=== PATIENT | female | born 1995 | race African-American/Black ===

== ENCOUNTER → 2016-11-20 | Outpatient (CLI) | payer OTHER ==
[2016-11-20 19:22] LABS: BASO % 0.5 % (0.0-1.0); EOS # 0.1 K/mm3 (0.0-0.50); EOS % 1.4 % (0.0-3.0); LARGE UNSTAINED CELL # 0.1 K/mm3 (0.0-0.4); LARGE UNSTAINED CELL % 1.8 % (0.0-4.0); LYMPH # 1.8 K/mm3 (1.5-6.5); LYMPH % 21.2 % (24.0-44.0); MEAN CORPUSCULAR HEMOGLOBIN 29.9 pg (27.0-33.0); MEAN CORPUSCULAR HGB CONC 32.5 g/dl (32.0-36.5); MEAN CORPUSCULAR VOLUME 92.1 fl (80.0-96.0); MONO % 12.7 % (0.0-5.0); NEUTROPHILS # 4.9 K/mm3 (1.8-7.7); NEUTROPHILS % 62.4 % (36.0-66.0); PLATELET COUNT, AUTOMATED 368 k/mm3 (150-450); RED CELL DISTRIBUTION WIDTH 12.7 % (11.5-14.5); WHITE BLOOD COUNT 7.8 K/mm3 (4.0-10.0)
[2016-11-21 10:45] LABS: HBsAg Prenatal NEGATIVE (NEGATIVE)
== END ==
LOC: M WUC 12:37
PROVIDERS: ATTEND Specialist
DX: Z34.81 Encounter for supervision of other normal pregnancy, first trimester (principal); Z3A.00 Weeks of gestation of pregnancy not specified

== ENCOUNTER → 2018-07-15 | Outpatient (CLI) | payer OTHER | LOC: M SMT 14:59 | PROVIDERS: ATTEND Obstetrics & Gynecology | DX: Z13.79 Encounter for other screening for genetic and chromosomal anomalies (principal) | CPT/HCPCS: 36415; 87661; G0123 ==

== ENCOUNTER → 2018-07-15 | Outpatient (REF) | payer OTHER | LOC: M LAB REF 17:41 | PROVIDERS: ATTEND Obstetrics & Gynecology | DX: Z12.4 Encounter for screening for malignant neoplasm of cervix (principal); Z11.3 Encounter for screening for infections with a predominantly sexual mode of transmission ==

== ENCOUNTER 2020-03-29 18:17 | Emergency (ER) | payer OTHER ==
[~2020-03-29] VITALS: Ht 165.1 cm; Wt 52.0 kg
--- OUTSIDE RECORDS SUMMARY | 2020-03-29 18:23 | CCD ---
[facility] Address Unknown Phone Unavailable Support Name Relationship Address Phone UE Next Of Kin Unknown Unavailable GINA POLLACK Next Of Kin [address] [id number] Re-disclosure Warning The records that you are about to access may contain information from federally-assisted alcohol or drug abuse programs. If such information is present, then the following federally mandated warning applies: This information has been disclosed to you from records protected by federal confidentiality rules (42 CFR part 2). The federal rules prohibit you from making any further disclosure of this information unless further disclosure is expressly permitted by the written consent of the person to whom it pertains or as otherwise permitted by 42 CFR part 2. A general authorization for the release of medical or other information is NOT sufficient for this purpose. The Federal rules restrict any use of the information to criminally investigate or prosecute any alcohol or drug abuse patient.The records that you are about to access may contain highly sensitive health information, the redisclosure of which is protected by Article 27-F of the [facility] Public Health law. If you continue you may have access to information: Regarding HIV / AIDS; Provided by facilities licensed or operated by the [facility] Office of Mental Health; or Provided by the [facility] Office for People With Developmental Disabilities. If such information is present, then the following [facility] mandated warning applies: This information has been disclosed to you from confidential records which are protected by state law. State law prohibits you from making any further disclosure of this information without the specific written consent of the person to whom it pertains, or as otherwise permitted by law. Any unauthorized further disclosure in violation of state law may result in a fine or fpc sentence or both. A general authorization for the release of medical or other information is NOT sufficient authorization for further disc losure. Insurance Providers Payer name Policy type / Coverage type Policy ID Covered green party ID Covered green party's relationship to carbone Policy Carbone Plan Information [facility] [id number]
[2020-03-29 19:26] LABS: BASO # 0.1 10^3/uL (0.0-0.2); BASO % 0.7 % (0.0-1.0); EOS # 0.1 10^3/uL (0.0-0.5); HEMATOCRIT 38.6 % (36.0-47.0); HEMOGLOBIN 12.4 g/dl (12.0-15.5); LYMPH # 2.2 10^3/uL (1.5-5.0); MEAN CORPUSCULAR HEMOGLOBIN 28.2 pg (27.0-33.0); MEAN CORPUSCULAR HGB CONC 32.1 g/dl (32.0-36.5); MEAN CORPUSCULAR VOLUME 87.9 fl (80.0-96.0); MONO # 1.2 10^3/uL (0.0-0.8); MONO % 16.1 % (0.0-5.0); NEUTROPHILS # 3.7 10^3/uL (1.5-8.5); NEUTROPHILS % 51.9 % (36.0-66.0); PLATELET COUNT, AUTOMATED 352 10^3/uL (150-450); RED BLOOD COUNT 4.39 10^6/uL (4.00-5.40); WHITE BLOOD COUNT 7.2 10^3/uL (4.0-10.0)
--- OUTSIDE RECORDS SUMMARY | 2020-03-29 19:54 | CCD ---
Author [facility] Address Unknown Phone Unavailable Support Name Relationship Address Phone UE Next Of Kin Unknown Unavailable IGNA POLLACK Next Of Kin [address] [phone] Re-disclosure Warning The records that you are [...] is protected by Article 27-F of the [facility] Public Health law. If you continue you may have access to information: Regarding HIV / AIDS; Provided by facilities licensed or operated by the [facility] Office of Mental Health; or Provided by the [facility] Office for People With Developmental Disabilities. If such information is present, then the following [facility] mandated warning applies: This information has [...] law may result in a fine or mcfp sentence or both. A general authorization for the release of medical or other information is NOT sufficient authorization for further disc losure. Insurance Providers Payer name Policy type / Coverage type Policy ID Covered republican ID Covered republican's relationship to carbone Policy Carbone Plan Information [facility] [id number]
[2020-03-29 21:08] VITALS: BP 137/80
== END 2020-03-29 21:17 | disposition home or self-care (01) ==
LOC: M ED 18:17
DX: Z32.01 Encounter for pregnancy test, result positive (principal); O20.8 Other hemorrhage in early pregnancy; O99.519 Diseases of the respiratory system complicating pregnancy, unspecified trimester; Z88.0 Allergy status to penicillin; Z88.1 Allergy status to other antibiotic agents

== ENCOUNTER → 2020-04-01 | Outpatient (CLI) | payer OTHER | LOC: M LAB 08:52 | PROVIDERS: ATTEND Physician Assistant | DX: O26.859 Spotting complicating pregnancy, unspecified trimester (principal); Z3A.00 Weeks of gestation of pregnancy not specified ==

== ENCOUNTER → 2020-06-29 | Outpatient (REF) | payer OTHER ==
[2020-06-29 18:08] LABS: HEMATOCRIT 37.7 % (36.0-47.0); HEMOGLOBIN 12.3 g/dl (12.0-15.5); MEAN CORPUSCULAR HEMOGLOBIN 28.5 pg (27.0-33.0); MEAN CORPUSCULAR HGB CONC 32.6 g/dl (32.0-36.5); MEAN CORPUSCULAR VOLUME 87.5 fl (80.0-96.0); PLATELET COUNT, AUTOMATED 348 10^3/uL (150-450); RED BLOOD COUNT 4.31 10^6/uL (4.00-5.40); WHITE BLOOD COUNT 9.4 10^3/uL (4.0-10.0)
[2020-06-29 19:41] LABS: CHLAMYDIA DNA AMPLIFICATION NEGATIVE (NEGATIVE); GC DNA AMPLIFICATION NEGATIVE (NEGATIVE)
[2020-07-02 15:36] LABS: HEPATITIS C VIRUS ABY INDEX 0.1 INDEX (<0.8); HIV 1&2 SCREEN CENTAUR NEGATIVE (NEGATIVE)
== END ==
LOC: M PLALAB 14:15
PROVIDERS: ATTEND Advanced Practice Midwife
DX: Z36.89 Encounter for other specified antenatal screening (principal); Z3A.00 Weeks of gestation of pregnancy not specified

== ENCOUNTER → 2020-07-03 | Outpatient (CLI) | payer OTHER ==
--- NOTE | 2020-07-03 10:20 | REP ---
INDICATION: UNKNOWN LMP/DATING COMPARISON: None. TECHNIQUE: Transabdominal 1st trimester obstetrical ultrasound with color Doppler evaluation. FINDINGS: Single live early intrauterine is appreciated. [place]-rump length of 6.5 cm corresponds to 12 weeks 6 days gestational age with estimated date of delivery 01/09/2021. heart rate equals 157 beats per minute. No gross abnormalities are identified. IMPRESSION: Single live early intrauterine at 12 weeks 6 days gestational age. Complete anatomical assessment should be performed and 19-20 weeks. <Electronically signed by Rashi Dickson > 07/03/20 [id number]
== END ==
LOC: M PLAIMG 08:53
PROVIDERS: ATTEND Advanced Practice Midwife
DX: Z36.89 Encounter for other specified antenatal screening (principal); Z3A.12 12 weeks gestation of pregnancy

== ENCOUNTER → 2020-08-22 | Outpatient (CLI) | payer OTHER ==
--- NOTE | 2020-08-22 10:45 | REP ---
INDICATION: ANATOMY COMPARISON: 07/03/2020 TECHNIQUE: Transabdominal obstetrical ultrasound with color Doppler evaluation. FINDINGS: Examination demonstrates a single live intrauterine in cephalic presentation. motion is identified by technologist. Placenta is noted fundal and grade 0 without evidence for placenta previa or abruption. Amniotic fluid volume is normal. Cervix measures 3.2 cm in length and appears closed.. Selected gestational age: 20 weeks 0 days with JONATHAN 01/09/2021. Gestational age by current measurements 19 weeks 6 days with JONATHAN 01/10/2021. FHR equals 142 beats per minute. Estimated weight 316 grams (37thpercentile). Anatomical assessment demonstrates normal structures including cranium, choroid plexus, cavum, cerebellum/posterior fossa, facial features, lungs,diaphragm, stomach, cord insertion/three-vessel cord, kidneys/bladder, spine, and extremities. IMPRESSION: Single live intrauterine in cephalic presentation demonstrating appropriate estimated weight and growth. Limited evaluation of the heart/ventricular outflow tracts. Remainder of the anatomical assessment is complete and normal. <Electronically signed by Rashi Dickson > 08/22/20 [id number]
== END ==
LOC: M WHC 08:49
PROVIDERS: ATTEND Obstetrics & Gynecology
DX: Z34.82 Encounter for supervision of other normal pregnancy, second trimester (principal)

== ENCOUNTER → 2020-10-03 | Outpatient (CLI) | payer OTHER ==
--- NOTE | 2020-10-03 11:25 | REP ---
INDICATION: PREG F/U ANATOMY. COMPARISON: 08/22/2020. TECHNIQUE: Real-time sonographic evaluation of the gravid uterus performed. FINDINGS: Estimated gestational age is26 weeks 0 days, EDC 01/09/2021. Today's measurements indicate appropriate growth. Presentation: Cephalic Placenta posterior, grade 0, without evidence of placenta previa. heart rate is recorded at 144 beats per minute. Amniotic fluid is subjectively normal. ALEN 12.9, normal range 9.7-22.3. Closed cervical length is measured at 4.0 cm. Biometry chart: BPD: 62 mm, 25 weeks 2 days, 36th percentile. HC: 231 mm, 25 weeks 1 days, 30th percentile AC: 207 mm, 25 weeks 2 days, 36th percentile Femur length: 46 mm, 25 weeks 3 days, 38th percentile HC to AC ratio: 1.11, normal range 1.01-1.20. Estimated weight: 797g, 16th percentile. The four-chamber heart and ventricular outflow tracts are visualized and are grossly unremarkable, an echogenic focus in the left ventricle is likely related to chordae tendineae. IMPRESSION: Viable single intrauterine gestation as above. <Electronically signed by Javid Rosado > 10/03/20 [id number]
== END ==
LOC: M RAD 10:24
PROVIDERS: ATTEND Advanced Practice Midwife
DX: Z34.92 Encounter for supervision of normal pregnancy, unspecified, second trimester (principal); Z3A.26 26 weeks gestation of pregnancy

== ENCOUNTER → 2020-10-05 | Outpatient (CLI) | payer OTHER ==
[2020-10-05 13:30] LABS: HEMATOCRIT 33.4 % (36.0-47.0); HEMOGLOBIN 10.7 g/dl (12.0-15.5); MEAN CORPUSCULAR HEMOGLOBIN 28.5 pg (27.0-33.0); MEAN CORPUSCULAR VOLUME 88.8 fl (80.0-96.0); PLATELET COUNT, AUTOMATED 292 10^3/uL (150-450); RED BLOOD COUNT 3.76 10^6/uL (4.00-5.40); WHITE BLOOD COUNT 9.6 10^3/uL (4.0-10.0)
== END ==
LOC: M PLALAB 09:26
PROVIDERS: ATTEND Advanced Practice Midwife
DX: Z34.92 Encounter for supervision of normal pregnancy, unspecified, second trimester (principal)

== ENCOUNTER → 2020-10-15 | Outpatient (CLI) | payer OTHER ==
[~2020-10-15] MED LIST: IBUP-1114 PO; MAPA500T2 PO; MULTTAB20 PO; PRENTAB9 PO
== END ==
LOC: M LAB 08:18
PROVIDERS: ATTEND Advanced Practice Midwife
DX: O99.810 Abnormal glucose complicating pregnancy (principal); Z3A.00 Weeks of gestation of pregnancy not specified

== ENCOUNTER → 2020-12-12 | Outpatient (REF) | payer OTHER | LOC: M SFHCWAGY 17:36 | PROVIDERS: ATTEND Obstetrics & Gynecology | DX: Z34.83 Encounter for supervision of other normal pregnancy, third trimester (principal) ==

== ENCOUNTER → 2020-12-31 | Outpatient (CLI) | payer OTHER ==
--- NOTE | 2020-12-31 20:28 | REP ---
INDICATION: GROWTH UTERINE SIZE DATE DISCREPANCY COMPARISON: 10/03/2020 TECHNIQUE: Transabdominal obstetrical ultrasound with color Doppler evaluation. FINDINGS: Examination demonstrates a single live intrauterine in cephalic presentation. motion is identified by technologist. Placenta is noted posterior and grade 2 without evidence for placenta previa or abruption. Amniotic fluid volume is normal. Cervix appears closed.. Selected gestational age: 30 weeks 5 days with JONATHAN 01/09/2021. Gestational age by current measurements 36 weeks 3 days with JONATHAN 01/25/2021. FHR equals 138 beats per minute. BPD: 8.8 cm at 35 weeks 2 days HC: 32.2 cm at 36 weeks 2 days AC: 32.5 cm at 36 weeks 3 days FL: 7.3 cm at 37 weeks 3 days HL: 6.3 cm at 36 weeks 4 days HC/AC: 0 point Estimated weight 2963 grams (17thpercentile). ALEN: 14.0 cm Umbilical artery SD ratio: 1.87 (1.52-3.31) IMPRESSION: Single live intrauterine in cephalic presentation demonstrating appropriate interval growth. Amniotic fluid volume is normal. <Electronically signed by Rashi Dickson > 12/31/202023
== END ==
LOC: M WHC 12:24
PROVIDERS: ATTEND Advanced Practice Midwife
DX: Z36.9 Encounter for antenatal screening, unspecified (principal); Z3A.36 36 weeks gestation of pregnancy

== ENCOUNTER → 2021-01-02 | Outpatient (CLI) | payer OTHER ==
[~2021-01-02] MED LIST changes: -IBUP-1114 PO; -MAPA500T2 PO; -PRENTAB9 PO
[2021-01-02 13:36] LABS: HEMATOCRIT 32.3 % (36.0-47.0); HEMOGLOBIN 9.8 g/dl (12.0-15.5); MEAN CORPUSCULAR HEMOGLOBIN 23.4 pg (27.0-33.0); MEAN CORPUSCULAR HGB CONC 30.3 g/dl (32.0-36.5); MEAN CORPUSCULAR VOLUME 77.3 fl (80.0-96.0); PLATELET COUNT, AUTOMATED 322 10^3/uL (150-450); RED BLOOD COUNT 4.18 10^6/uL (4.00-5.40); WHITE BLOOD COUNT 11.5 10^3/uL (4.0-10.0)
[2021-01-02 14:06] LABS: TOTAL PROTEIN,RANDOM URINE 42.6 MG/DL (0.0-12.0)
[2021-01-02 14:12] LABS: ALBUMIN 2.7 GM/DL (3.2-5.2); ALT/SGPT 11 U/L (12-78); BILIRUBIN,TOTAL 0.3 MG/DL (0.2-1.0); BLOOD UREA NITROGEN 8 MG/DL (7-18); CALCIUM LEVEL 8.5 MG/DL (8.5-10.1); CARBON DIOXIDE LEVEL 22 MEQ/L (21-32); CHLORIDE LEVEL 108 MEQ/L (98-107); CREATININE FOR GFR 0.75 MG/DL (0.55-1.30); GLOMERULAR FILTRATION RATE > 60.0 (>60); GLUCOSE, FASTING 108 MG/DL (70-100); POTASSIUM SERUM 3.7 MEQ/L (3.5-5.1); SODIUM LEVEL 139 MEQ/L (136-145); TOTAL PROTEIN 6.4 GM/DL (6.4-8.2)
== END ==
LOC: M PLALAB 11:03
PROVIDERS: ATTEND Obstetrics & Gynecology
DX: O16.3 Unspecified maternal hypertension, third trimester (principal)
CPT/HCPCS: 36415; 80053; 82570; 84156; 85027; G0463

== ENCOUNTER 2021-01-07 00:04 | Inpatient (IN) | payer OTHER ==
[2021-01-07] VITALS (11 sets, daily range): BP systolic 123–140; BP diastolic 69–85
[~2021-01-07] VITALS: Ht 165.1 cm; Wt 51.2 kg
[2021-01-07] MEDS ORDERED: OXYTOCIN 30 UNITS IN 0.9% NaCl 500ML IV BAG (J2590) As Ordered ONE ×2 (00:39→01:30)
[2021-01-07 01:02] LABS: HEMATOCRIT 32.7 % (36.0-47.0); HEMOGLOBIN 10.2 g/dl (12.0-15.5); MEAN CORPUSCULAR HEMOGLOBIN 23.4 pg (27.0-33.0); MEAN CORPUSCULAR HGB CONC 31.2 g/dl (32.0-36.5); MEAN CORPUSCULAR VOLUME 75.2 fl (80.0-96.0); PLATELET COUNT, AUTOMATED 341 10^3/uL (150-450); RED BLOOD COUNT 4.35 10^6/uL (4.00-5.40); WHITE BLOOD COUNT 14.7 10^3/uL (4.0-10.0)
[2021-01-07] MEDS ORDERED: ACETAMINOPHEN 500 MG TAB PO PRN (01:10)
[2021-01-07] MEDS ORDERED: METHYLERGONOVINE MALEATE 0.2 MG/ML VIAL (J2210) IM PRN (01:10)
[2021-01-07] MEDS ORDERED: DOCUSATE SODIUM 100MG CAPSULE PO PRN (01:10)
[2021-01-07] MEDS ORDERED: CARBOPROST TROMETHAMINE 250 MCG/ML AMP IM PRN (01:10)
[2021-01-07] MEDS ORDERED: MEASLES,MUMPS,RUBELLA VACCINE INJ (MMR-II) (90707) SC SCH (01:10)
[2021-01-07] MEDS ORDERED: RHOGAM 300 MCG (1500 IU) INJ (J2790) IM SCH (01:10)
[2021-01-07] MEDS ORDERED: METHYLERGONOVINE MALEATE 0.2 MG TAB PO PRN (01:10)
[2021-01-07] MEDS ORDERED: DIBUCAINE 1% OINTMENT 30GM TOP PRN (01:10)
[2021-01-07] MEDS ORDERED: TRANEXAMIC ACID INJection 1,000 MG in NS 100 ML IV PRN (01:10)
--- NOTE | 2021-01-07 01:20 | HPEPDOC ---
Obstetrical History & Physical General Date of Admission Jan 07, 2021 at 00:37 History of Present Illness Patient is a 25-year-old -0-0-1 at 39 weeks and 5 days estimated gestational age who presents to labor and delivery with painful regular contractions. She was found to be 9 cm on presentation and was admitted to labor and delivery for expected management Chief Complaint: Contractions, term Information Provided By: Patient Age: 25 : 2 Term: 1 Pre-term: 0 Abortions: 0 Livin Care Care: Good Care Dating Final EDC: Jan 09, 2021 Past Medical History Past Obstetrical History : Past Obstetrical History: Multigravida Type of Delivery: Spontaneous Vaginal Del. 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 Past Medical History Surgical History: Denies/None Family History Significant Family History: No pertinent family hx Social History Marital Status: Family situation: Spouse/partner home Psychosocial History: No pertinent psych hx * Smoker: non-smoker Alcohol: Denies Drugs: denies Abuse Violence Screening Have you been hit/kicked/slapp: No Have you been sexually assault: No Imunizations Tdap status: current Allergies Coded Allergies: Penicillins (Verified Allergy, Intermediate, Hives/throat closure, ) cephalexin (Verified Allergy, Intermediate, Hives, 03/29/20) Medications No Active Prescriptions or Reported Meds Physical Examination Physical Examination GENERAL: Alert and oriented times three. BREAST: . ABDOMEN: Gravid and non-tender to touch. FETUS: Is vertex (VTX) by sterile vaginal examination (SVE) HEART RATE: Regular rate and rhythm. LUNGS: Clear to auscultation (CTA). EXTREMITIES: No edema. No clonus. Laboratory Data 24H LABS Laboratory Tests 2 01/07/21 00:40: Serology Scanned Report Hepatitis B Testing 01/07/21 00:57: Nucleated Red Blood Cells % (auto) 0.0 CBC/BMP Laboratory Tests 01/07/21 00:57 Pertinent Laboratoy Data Blood Type: O+ RBC Antibody Screen: Negative HIV: Negative Hepatitis B: Negative Hepatitis C: Negative Rapid Plasma Reagin: Nonreactive Rubella: Immune Chlamydia/Gonorrhea: Negative Group B Streptococcus: Negative Glucose Tolerance Test: 143 Vaginal Examination Dilation: 9 cm Effacement: 100% Station: +2 Presentation: Cephalic presentation Tocometer Contractions: Yes Assessment/Plan Assessment 25-year-old (G)2 para (P)2001 at 39+5 weeks. Presents to Labor and Delivery (L&D) with painful regular contractions, found to be 9 cm dilated Plan Admit and orient. V Groove Cutter and consent. Diet: Regular. Group B Streptococcus (GBS) negative. Labs and intravenous (IV) per unit protocol. Anticipate . C-S as appropriate. MONROE BELL MD Jan 07, 2021 01:20
--- NOTE | 2021-01-07 01:23 | DNPDOC ---
[facility] Delivery Note Delivery Note DATE OF DELIVERY: 01/07/2021 PREDELIVERY DIAGNOSIS: 39-5/7 weeks' gestation and labor. POST DELIVERY DIAGNOSIS: Delivered. PROCEDURE: Spontaneous vaginal delivery. [employer] DESIGN LAYOUT: Dr. Monroe Bell ANESTHESIA: None. ESTIMATED BLOOD LOSS: 100 mL. FINDINGS: 6 pound 3 ounce female infant, Score 9/9. DELIVERY SUMMARY: Patient is a 25-year-old 2 now para 2001 who was admitted to labor and delivery for active labor. She was found to be 9 cm dilated on admission with head at the +2 station. She was moved to a labor room and delivered precipitously. She ruptured spontaneously for clear fluid and delivered a vigorous female over an intact perineum. After 30 second delay the cord was clamped and cut. The placenta was then delivered intact. She had no vaginal tears. Sponge and sharp count correct x2 MONROE BELL MD Jan 07, 2021 01:23
[2021-01-07] MEDS ORDERED: HOME MED LIST COMPLETE! XX SCH (02:05)
[2021-01-07] MEDS ORDERED: MULTTAB20 PO (02:05)
[2021-01-07] MEDS ORDERED: OXYTOCIN DRIP 30 UNITS in IV 1 EA IV SCH ×4 (02:40)
[2021-01-07] MEDS: PRENATAL VITAMINS CHEWABLE TABLET PO SCH (08:55)
[2021-01-07] MEDS: IBUPROFEN 800 MG TAB PO PRN ×2 (12:38→20:57)
[2021-01-08 05:55] VITALS: BP 125/74
[2021-01-08] MEDS: PRENATAL VITAMINS CHEWABLE TABLET PO SCH (08:02)
[2021-01-08] MEDS: IBUPROFEN 800 MG TAB PO PRN (08:03)
[2021-01-08] MEDS ORDERED: INFLUENZA QUADRIVALENT PF VACCINE 0.5ML SYRINGE IM ONE (09:00)
--- NOTE | 2021-01-08 12:51 | IPNPDOC ---
Progress Note Date of Service: Jan 08, 2021 Day#: 1 Progress Note SUBJECT: Status post . She has been ambulating, voiding spontaneously with out issue and tolerating regular diet. Lochia decreasing/minimal. Pain is well- controlled. Denies headache, visual changes, right upper quadrant pain, shortness breath or chest pain. OBJECTIVE: VITAL SIGNS: Within normal limits, afebrile. Alert and oriented times three. Abdomen: Fundus firm at U-2. Soft, NTTP. ASSESSMENT: Status post uncomplicated spontaneous vaginal delivery. Vitals within normal limits, afebrile, hemodynamically stable with no evidence of infection. PLAN: Discharge to home today. Tylenol and Motrin for pain. Routine instructions/precautions reviewed. Routine PP visit in 6 weeks in clinic. VS, I&O, 24H, Fishbone Vital Signs/I&O Vital Signs Date Time Temp Pulse Resp B/P (MAP) Pulse Ox O2 Delivery O2 Flow Rate FiO2 01/08/21 05:55 98.0 65 16 125/74 (91) 98 Room Air GRECIA HERCULES DO Jan 08, 2021 12:51
== END 2021-01-08 12:45 | disposition home or self-care (01) | DRG 807 ==
LOC: M LDO 00:04 → M LDI 00:37 → M OBS 03:05
PROVIDERS: ADMIT Obstetrics & Gynecology; ATTEND Obstetrics & Gynecology
PROC: 10E0XZZ Delivery of Products of Conception, External Approach (ICD-10-PCS; principal; 2021-01-07)
DX: O62.3 Precipitate labor (principal); Z37.0 Single live birth; Z3A.39 39 weeks gestation of pregnancy

== ENCOUNTER 2021-01-11 03:05 | Emergency (ER) | payer OTHER ==
[~2021-01-11] VITALS: Ht 165.1 cm; Wt 62.4 kg
--- OUTSIDE RECORDS SUMMARY | 2021-01-11 08:54 | CCD ---
Author Author [facility] Organization [facility] Address Unknown Phone Unavailable Support Name Relationship Address Phone PEYTON CAPELLAN Next Of Kin [address] [place] [address] LENKA POLLACK Next Of Kin [address] [place] [address] UE Next Of Kin Unknown Unavailable GINA POLLACK Next Of Kin [address] [facility] [address] [address] LENKA POLLACK ECON [address] [place] [address] Unavailable Re-disclosure Warning The records that you are [...] is protected by Article 27-F of the [facility] Public Health law. If you continue you may have access to information: Regarding HIV / AIDS; Provided by facilities licensed or operated by the [facility] Office of Mental Health; or Provided by the [facility] Office for People With Developmental Disabilities. If such information is present, then the following [facility] mandated warning applies: This information has [...] law may result in a fine or half-way sentence or both. A general authorization for the release of medical or other information is NOT sufficient authorization for further disc losure. Family History Family Member Name Family Member Gender Family Member Status Date o f Status Description Data Source(s) Unknown Male Condition [facility] Unknown Male Condition [facility] Unknown Male Condition [facility] Unknown Male Condition [facility] Encounters Encounter Providers Location Date Indications Data Source(s ) ( ESTOB) [facility] [address] [place] [address] 01/02/2021 12:00:00 AM EDT eCW1 ([facility]) ( ESTOB) [facility] [address] [place] [address] 12/26/2020 12:00:00 AM EDT eCW1 ([facility]) ( ESTOB) [facility] [address] [place] [address] 12/19/2020 12:00:00 AM EDT eCW1 ([facility]) ( ESTOB) [facility] [address] [place] [address] 12/12/2020 12:00:00 AM EDT eCW1 ([facility]) ( ESTOB) [facility] Est [facility] [address] [place] [address] 10/29/2020 12:00:00 AM EDT eCW1 ([facility]) Unknown [address] [place] [address] 10/05/2020 12:00:00 AM EDT eCW1 ([facility]) ( ESTOB) [facility] Est [facility] [address] [place] [address] 10/01/2020 12:00:00 AM EDT eCW1 ([facility]) ( ESTOB) [facility] Est OB [address] [place] [address] 07/27/2020 12:00:00 AM EDT eCW1 ([facility]) ([facility] ESTOB) [facility] [address] [place] [address] 06/29/2020 12:00:00 AM EDT eCW1 ([facility]) Immunizations Vaccine Date Status Description Data Source(s) Tdap 12/12/2020 01:56:00 PM EDT completed e CW1 (Pending Sale To [facility]) Tdap 12/12/2020 01:56:00 PM EDT completed e CW1 (Pending Sale To [facility]) Tdap 12/12/2020 01:56:00 PM EDT completed e CW1 (Pending Sale To [facility]) Tdap 12/12/2020 01:56:00 PM EDT completed e CW1 (Pending Sale To [facility]) Medications No Information Insurance Providers Payer name Policy type / Coverage type Policy ID Covered constitution party ID Covered constitution party's relationship to carbone Policy Carbone Plan Information [facility] [id number] [facility] [id number] Problems, Conditions, and Diagnoses Code Display Name Description Problem Type Effective Dates Data Source(s) O16.3 80291200 Elevated blood press ure affecting in third trimester, antepartum Problem 01/02/2021 12:00:00 AM EDT eCW1 ([facility]) Z34.80 care Supervision of other normal P gustavolem 06/29/2020 12:00:00 AM EDT eCW1 (Pending Sale To [facility]) Surgeries/Procedures Procedure Description Date Indications Data Source(s) TDAP VACCINE 7/> YR IM 12/12/2020 12:00:00 AM EDT eCW1 (Pending Sale To [facility]) Results ID Date Data Source [id number] 01/07/2021 01:10:00 AM EDT [facility] Name Value Range Interpretation Code Description Data Teresa rce(s) Supporting Document(s) SARS coronavirus 2 RNA [Presence] in Res piratory specimen by ALISHA with probe detection NEGATIVE [facility] This lab was ordered by [facility] a nd reported by [facility]. ID Date Data Source TOTAL PROTEIN,RANDOM URINE 01/02/2021 12:00:00 AM EDT eCW1 ( Pending Sale To [facility]) Name Value Range Interpretation Code Description Data Teresa rce(s) Supporting Document(s) 42.6 0.0-12.0 TOTAL PROTEIN,RANDOM URIN E eCW1 (Pending Sale To [facility]) ID Date Data Source CREATININE,RANDOM URINE 01/02/2021 12:00:00 AM EDT eCW1 ([facility]) Name Value Range Interpretation Code Description Data Teresa rce(s) Supporting Document(s) 198.0 CREATININE,RANDOM URINE eCW1 ( Pending Sale To [facility]) ID Date Data Source Comprehensive Metabolic Profile (CMP) 01/02/2021 12:00:00 AM EDT eCW1 (Pending Sale To [facility]) Name Value Range Interpretation Code Description Data Teresa rce(s) Supporting Document(s) 108 70-100 GLUCOSE, FASTING eCW1 ([facility]) 8 7-18 BLOOD UREA NITROGEN eCW1 (Counts include 234 beds at the [facility]) 0.75 0.55-1.30 CREATININE FOR GFR eCW1 ([facility]) > 60.0 >60 GLOMERULAR FILTRATION RATE eCW 1 (Pending Sale To [facility]) 139 136-145 SODIUM LEVEL eCW1 ([facility]) 108 98-107 CHLORIDE LEVEL eCW1 (Pending Sale To [facility]) 3.7 3.5-5.1 POTASSIUM SERUM eCW1 ([facility]) 8.5 8.5-10.1 CALCIUM LEVEL eCW1 (Pending Sale To [facility]) 22 21-32 CARBON DIOXIDE LEVEL eCW1 ([facility]) 11 12-78 ALT/SGPT eCW1 ([facility]) 9 7-37 AST/SGOT eCW1 ([facility]) 96 45-117 ALKALINE PHOSPHATASE eCW1 ([facility]) 0.3 0.2-1.0 BILIRUBIN,TOTAL eCW1 ([facility]) 6.4 6.4-8.2 TOTAL PROTEIN eCW1 (Pending [facility] To [facility]) 2.7 3.2-5.2 ALBUMIN eCW1 ([facility]) 0.7 1.2-2.2 ALBUMIN/GLOBULIN RATIO eCW1 ([facility]) ID Date Data Source CBC - Complete Blood Count 01/02/2021 12:00:00 AM EDT eCW1 ( Pending Sale To [facility]) Name Value Range Interpretation Code Description Data Teresa rce(s) Supporting Document(s) 11.5 4.0-10.0 WHITE BLOOD COUNT eCW1 ([facility]) 9.8 12.0-15.5 HEMOGLOBIN eCW1 ([facility]) 4.18 4.00-5.40 RED BLOOD COUNT eCW1 ([facility]) 77.3 80.0-96.0 MEAN CORPUSCULAR VOLUME e CW1 ([facility]ending [facility] To [facility]) 32.3 36.0-47.0 HEMATOCRIT eCW1 ([facility]) 30.3 32.0-36.5 MEAN CORPUSCULAR HGB CONC eCW1 (Pending Sale To [facility]) 23.4 27.0-33.0 MEAN CORPUSCULAR HEMOGLOB IN eCW1 (Pending Sale To [facility]) 16.0 11.5-14.5 RED CELL DISTRIBUTION WID TH eCW1 (Pending Sale To [facility]) 322 150-450 PLATELET COUNT, AUTOMATED eCW1 (Pending Sale To [facility]) ID Date Data Source GROUP B STREP CULTURE 12/12/2020 12:00:00 AM EDT eCW1 ([facility]) Name Value Range Interpretation Code Description Data Teresa rce(s) Supporting Document(s) GROUP B STREP CULTURE eCW1 ([facility]) ID Date Data Source US OB<14WKS SINGLE OR 1ST GEST 07/03/2020 12:00:00 AM EDT eC W1 (Pending Sale To [facility]) Name Value Range Interpretation Code Description Data Teresa rce(s) Supporting Document(s) US OB<14WKS SINGLE OR 1ST GEST eCW1 (Pending Sale To [facility]) ID Date Data Source HBSAG 06/29/2020 12:00:00 AM EDT eCW1 ([facility]) Name Value Range Interpretation Code Description Data Teresa rce(s) Supporting Document(s) NEGATIVE NEGATIVE HBsAg eCW1 (Pending Sale To [facility]) ID Date Data Source HEPATITIS C ANTIBODY INDEX 06/29/2020 12:00:00 AM EDT eCW1 ( Pending Sale To [facility]) Name Value Range Interpretation Code Description Data Teresa rce(s) Supporting Document(s) 0.1 <0.8 HEPATITIS C VIRUS KACEY INDEX eC W1 (Pending Sale To [facility]) ID Date Data Source URINE CULTURE 06/29/2020 12:00:00 AM EDT eCW1 ([facility]) Name Value Range Interpretation Code Description Data Teresa rce(s) Supporting Document(s) URINE CULTURE eCW1 (Pending Sale To [facility]) ID Date Data Source RUBELLA IMMUNE STATUS IgG 06/29/2020 12:00:00 AM EDT eCW1 ([facility]) Name Value Range Interpretation Code Description Data Teresa rce(s) Supporting Document(s) IMMUNE IMMUNE RUBELLA IgG QUALITATIVE eCW1 ( [facility]ending [facility] To [facility]) ID Date Data Source SYPHILIS ANTIBODY (RPR SCREEN) 06/29/2020 12:00:00 AM EDT eC W1 (Pending Sale To [facility]) Name Value Range Interpretation Code Description Data Teresa rce(s) Supporting Document(s) NONREACTIVE NONREACTIVE SYPHILIS eCW1 (Pending Sale To [facility]) ID Date Data Source [id number] 06/29/2020 12:00:00 AM EDT eCW1 ([facility]) Name Value Range Interpretation Code Description Data Teresa rce(s) Supporting Document(s) HIV 1&2 ANTIBODY SCREEN eCW1 ( Pending [facility] To [facility]) ID Date Data Source CHLAMYDIA & GC DNA AMPLIFICAT 06/29/2020 12:00:00 AM EDT eCW 1 (Pending Sale To [facility]) Name Value Range Interpretation Code Description Data Teresa rce(s) Supporting Document(s) Chlamydia trachomatis rRNA [Presence] in Unspecified specimen by Probe and target amplification method NEGATIVE NEGATIVE CHLAMYDIA DNA AMPLIFICATION eCW1 (Pending Sale To [facility]) ID Date Data Source Type and Screen Prenatal1 06/29/2020 12:00:00 AM EDT eCW1 ([facility]) Name Value Range Interpretation Code Description Data Teresa rce(s) Supporting Document(s) NEGATIVE AB SCREEN PNP1 GEL (VIS) eCW1 (Pending [facility] To [facility]) Procedure Social History Code Duration Value Status Description Data Source(s ) Smoking 12/31/2020 12:00:00 AM EDT Never Smoker completed Never S moker eCW1 ([facility]ending [facility] To [facility]) Smoking 12/31/2020 12:00:00 AM EDT Never Smoker completed Never S moker eCW1 (Pending [facility] To [facility]) Smoking 12/21/2020 12:00:00 AM EDT Never Smoker completed Never S moker eCW1 ([facility]ending [facility] To [facility]) Smoking 12/19/2020 12:00:00 AM EDT Never Smoker completed Never S moker eCW1 ([facility]ending [facility] To [facility]) Smoking 10/23/2020 12:00:00 AM EDT Never Smoker completed Never S moker eCW1 (Pending [facility] To [facility]) Smoking 09/27/2020 12:00:00 AM EDT Never Smoker completed Never S moker eCW1 (Pending [facility] To [facility]) Smoking 09/27/2020 12:00:00 AM EDT Never Smoker completed Never S moker eCW1 (Pending [facility] To [facility]) Smoking 07/27/2020 12:00:00 AM EDT Never Smoker completed Never S moker eCW1 ([facility]ending [facility] To [facility]) Smoking 06/29/2020 12:00:00 AM EDT Never Smoker completed Never S moker eCW1 (Pending Sale To [facility]) Vital Signs ID Date Data Source UNK Name Value Range Interpretation Code Description Data Source(s) Body weight 150 [lb_av] 150 [lb_av] eCW1 ([facility]) Body weight 68.04 kg 68.04 kg W1 ([facility]) Body height 65 [in_i] 65 [in_i] W1 ([facility]) Body mass index (BMI) [Ratio] 24.961 kg/m2 24.9 61 kg/m2 W1 ([facility]) Systolic blood pressure 130 mm[Hg] 130 mm[Hg] e CW1 (Pending [facility] To [facility]) Diastolic blood pressure 94 mm[Hg] 94 mm[Hg] W1 (Pending [facility] To [facility]) Body weight 148.6 [lb_av] 148.6 [lb_av] eCW1 ([facility]) Body weight 67.4 kg 67.4 kg eCW1 ([facility]) Body height 65 [in_i] 65 [in_i] eCW1 ([facility]) Body mass index (BMI) [Ratio] 24.728 kg/m2 24.7 28 kg/m2 eCW1 (Pending [facility] To [facility]) Systolic blood pressure 120 mm[Hg] 120 mm[Hg] e CW1 (Pending [facility] To [facility]) Diastolic blood pressure 78 mm[Hg] 78 mm[Hg] eCW1 (Pending Sale To [facility]) Body weight 144 [lb_av] 144 [lb_av] eCW1 ([facility]) Body weight 65.32 kg 65.32 kg eCW1 ([facility]) Body height 65 [in_i] 65 [in_i] eCW1 ([facility]) Body mass index (BMI) [Ratio] 23.963 kg/m2 23.9 63 kg/m2 eCW1 (Pending [facility] To [facility]) Systolic blood pressure 120 mm[Hg] 120 mm[Hg] e CW1 (Pending [facility] To [facility]) Diastolic blood pressure 70 mm[Hg] 70 mm[Hg] eCW1 (Pending [facility]) Body weight 143.2 [lb_av] 143.2 [lb_av] eCW1 ([facility]) Body weight 64.95 kg 64.95 kg eCW1 ([facility]) Body height 65 [in_i] 65 [in_i] eCW1 ([facility]) Body mass index (BMI) [Ratio] 23.83 kg/m2 23.83 kg/m2 eCW1 ([facility]) Systolic blood pressure 124 mm[Hg] 124 mm[Hg] e CW1 (Pending [facility]) Diastolic blood pressure 78 mm[Hg] 78 mm[Hg] eCW1 (Pending [facility] To [facility]) Body weight 135.6 [lb_av] 135.6 [lb_av] eCW1 ([facility]) Body weight 61.51 kg 61.51 kg eCW1 ([facility]) Body height 65 [in_i] 65 [in_i] eCW1 ([facility]) Body mass index (BMI) [Ratio] 22.56 kg/m2 22.56 kg/m2 eCW1 ([facility]ending [facility]) Systolic blood pressure 126 mm[Hg] 126 mm[Hg] e CW1 (Pending [facility] To [facility]) Diastolic blood pressure 80 mm[Hg] 80 mm[Hg] eCW1 (Pending [facility]) Body weight 131.4 [lb_av] 131.4 [lb_av] eCW1 ([facility]) Body weight 59.6 kg 59.6 kg eCW1 ([facility]) Body height 65 [in_i] 65 [in_i] eCW1 ([facility]) Body mass index (BMI) [Ratio] 21.866 kg/m2 21.8 66 kg/m2 eCW1 (Pending [facility]) Systolic blood pressure 124 mm[Hg] 124 mm[Hg] e CW1 (Pending [facility]) Diastolic blood pressure 82 mm[Hg] 82 mm[Hg] eCW1 (Pending [facility]) Body weight 122.2 [lb_av] 122.2 [lb_av] eCW1 ([facility]) Body height 65 [in_i] 65 [in_i] eCW1 ([facility]) Body mass index (BMI) [Ratio] 20.335 kg/m2 20.3 35 kg/m2 eCW1 ([facility]ending [facility]) Systolic blood pressure 120 mm[Hg] 120 mm[Hg] e CW1 (Pending [facility]) Diastolic blood pressure 90 mm[Hg] 90 mm[Hg] eCW1 (Pending [facility] To [facility]) Body weight 117 [lb_av] 117 [lb_av] eCW1 ([facility]) Body height 65 [in_i] 65 [in_i] eCW1 ([facility]) Body mass index (BMI) [Ratio] 19.47 kg/m2 19.47 kg/m2 eCW1 (Pending [facility]) Systolic blood pressure 124 mm[Hg] 124 mm[Hg] e CW1 (Pending [facility] To [facility]) Diastolic blood pressure 82 mm[Hg] 82 mm[Hg] eCW1 (Pending Sale To [facility])
--- OUTSIDE RECORDS SUMMARY | 2021-01-11 08:54 | CCD ---
Author Author [facility] Organization [facility] Address Unknown Phone Unavailable Care Team Providers Care Pediatric Physician Name Role Phone Catherine English Unavailable PROBLEMS Type Condition ICD9-CM Code [id number] Code Onset Dates Condition S tatus W/U Status Risk SNOMED Code Notes Problem Supervision of other normal Z34.80 Ac tive confirm [id number] ALLERGIES Allergen (clinical drug ingredient) Drug/Non Drug Allergy do cumented on EMR Reaction Allergy Type Onset Date Status cephalexin Keflex([facility] Code:[address]-85) hives, swelling Drug Allerg y Active penicillin G Penicillin G Potassium([facility] Code:36416-04 36-94) hives, throat closes Drug Allergy Active ENCOUNTERS from 1995 to 2020-10-30 Encounter Location Date Provider Diagnosis [facility] [address] [place] [address] [place] [address] Oct, Catherine English 29 weeks gestation o f Z3A.29 and Encounter for supervision of normal in multigravida in third trimester Z34.83 IMMUNIZATIONS No Information SOCIAL HISTORY Tobacco Use: Social History Observation Description Date Details (start date - stop date) Never Smoker Sex Assigned At : Social History Observation Description Sex Assigned At Unknown Tobacco Use: Question Answer Notes Are you a: never smoker REASON FOR REFERRAL No Information VITAL SIGNS Weight 135.6 lbs Oct, Weight-kg 61.51 kg Oct, Height 65 in Oct, BMI 22.56 kg/m2 Oct, Blood pressure systolic 126 mm Hg Oct, Blood pressure diastolic 80 mm Hg Oct, MEDICATIONS Medication SIG (Take, Route, Frequency, Duration) Notes Start Da te End Date Status Active Ventolin HFA Active PROCEDURES No Information RESULTS No Results REASON FOR VISIT 4 WK PN MEDICAL (GENERAL) HISTORY Type Description Date Medical History asthma Hospitalization History childbirth Hospitalization History angioedema as a child Goals Section No Information Health Concerns No Information MEDICAL EQUIPMENT No Information MENTAL STATUS No Information FUNCTIONAL STATUS No Information ASSESSMENTS Encounter Date Diagnosis Assessment Notes Treatment Notes Treatm ent Clinical Notes Oct, 29 weeks gestation of (ICD-10 - Z3A.29 ) Oct, Encounter for supervision of normal in multigravida in third trimester (ICD-10 - Z34.83) PLAN OF TREATMENT Next Appt Details 4 Weeks Reason:PN Provider Name:Gemini Mars, 2020-12-04 1 0:00:00 AM, [address] [facility], , [place], [address], Follow Up:4 WeeksPN Insurance Providers Payer Name Payer Address Payer Phone Insured Name Patient Relati onship to Insured Coverage Start Date Coverage End Date [address] [phone] CHRISTINE POLLACK self
--- OUTSIDE RECORDS SUMMARY | 2021-01-11 08:54 | CCD ---
Author Author [facility] Organization [facility] Address Unknown Phone Unavailable Care Team Providers Care It Infrastructure Project Manager Name Role Phone ZitajavierGunjan nagy Unavailable PROBLEMS Type Condition ICD9-CM Code TCK25-KQ Code Onset Dates Condition S tatus W/U Status Risk SNOMED Code Notes Problem Supervision of other normal Z34.80 Ac tive confirm [id number] ALLERGIES Allergen (clinical drug ingredient) Drug/Non Drug Allergy do cumented on EMR Reaction Allergy Type Onset Date Status cephalexin Keflex([facility] Code:[address]-06) hives, swelling Drug Allerg y Active penicillin G Penicillin G Potassium([facility] Code:27835-36 36-94) hives, throat closes Drug Allergy Active ENCOUNTERS from 1995 to 2020-12-20 Encounter Location Date Provider Diagnosis [facility] [phone] [place] [address] Dec, Gunjan Camara Uterine size date discrepancy O26.849 and 37 weeks gestation of Z3A.37 IMMUNIZATIONS Vaccine Route Administration Date Status TDAP 0.5mL Boostrix IM Intramuscular Dec 12, 2020 Administere d SOCIAL HISTORY Tobacco Use: Social History Observation Description Date Details (start date - stop date) Never Smoker Sex Assigned At : Social History Observation Description Sex Assigned At Unknown Tobacco Use: Question Answer Notes Are you a: never smoker REASON FOR REFERRAL No Information VITAL SIGNS Weight 144 lbs Dec, Weight-kg 65.32 kg Dec, Height 65 in Dec, BMI 23.963 kg/m2 Dec, Blood pressure systolic 120 mm Hg Dec, Blood pressure diastolic 70 mm Hg Dec, MEDICATIONS Medication SIG (Take, Route, Frequency, Duration) Notes Start Da te End Date Status Active Ventolin HFA Active PROCEDURES No Information RESULTS No Results REASON FOR VISIT 1 WK PN MEDICAL (GENERAL) HISTORY Type Description Date Medical History asthma Hospitalization History childbirth Hospitalization History angioedema as a child Goals Section No Information Health Concerns No Information MEDICAL EQUIPMENT No Information MENTAL STATUS No Information FUNCTIONAL STATUS No Information ASSESSMENTS Encounter Date Diagnosis Assessment Notes Treatment Notes Treatm ent Clinical Notes Dec, Uterine size date discrepancy (ICD-10 - O26.849) Dec, 37 weeks gestation of (ICD-10 - Z3A.37 ) PLAN OF TREATMENT Treatment Notes Test Name Order Date [facility] OBS FOLLOW UP OR REPEAT 2020-12-19 Next Appt Details 1 Week Reason:- Routine follow up Provider Name:Issac Mireles, 2020-12-26 10:15:00 AM, [address] [place], [place] [phone], [place], [address], Provider Name:Lexie Garrido, 2020-12-15 0 10:20:00 AM, [address] [place] [phone], [place], [address], Provider Name:Lexie Garrido, 2020-12-15 7 10:20:00 AM, [address] [place], [place] [phone], [place], [address], Follow Up:1 Week- Routine follow up Insurance Providers Payer Name Payer Address Payer Phone Insured Name Patient Relati onship to Insured Coverage Start Date Coverage End Date [place] [phone] CHRISTINE POLLACK self
--- OUTSIDE RECORDS SUMMARY | 2021-01-11 08:54 | CCD ---
Author Author [facility] Organization [facility] Address Unknown Phone Unavailable Care Team Providers Care Mesh Man Name Role Phone Hema Lexie Unavailable PROBLEMS Type Condition ICD9-CM Code [id number] Code Onset Dates Condition S tatus W/U Status Risk SNOMED Code Notes Problem Supervision of other normal Z34.80 Ac tive confirm [id number] ALLERGIES Allergen (clinical drug ingredient) Drug/Non Drug Allergy do cumented on EMR Reaction Allergy Type Onset Date Status cephalexin Keflex([facility] Code:[address]-79) hives, swelling Drug Allerg y Active penicillin G Penicillin G Potassium([facility] Code:53687-36 36-94) hives, throat closes Drug Allergy Active ENCOUNTERS from 1995 to 2020-12-21 Encounter Location Date Provider Diagnosis [facility] [address] [place] [address] [place] [address] Nov, Lexie Garrido Encounter for superv ision of normal in multigravida in third trimester Z34.83 ; 36 weeks gestation of Z3A.36 and Encounter for immunization Z23 IMMUNIZATIONS Vaccine Route Administration Date Status TDAP 0.5mL Boostrix IM Intramuscular Dec 12, 2020 Administere d SOCIAL HISTORY Tobacco Use: Social History Observation Description Date Details (start date - stop date) Never Smoker Sex Assigned At : Social History Observation Description Sex Assigned At Unknown Alcohol Screening: Question Answer Notes Did you have a drink containing alcohol in the past year? No Points 0 Interpretation Negative Tobacco Use: Question Answer Notes Are you a: never smoker REASON FOR REFERRAL No Information VITAL SIGNS Weight 143.2 lbs 29 Nov, 2021 Weight-kg 64.95 kg Nov, Height 65 in Nov, BMI 23.83 kg/m2 Nov, Blood pressure systolic 124 mm Hg Nov, Blood pressure diastolic 78 mm Hg Nov, MEDICATIONS Medication SIG (Take, Route, Frequency, Duration) Notes Start Da te End Date Status Active Ventolin HFA Active PROCEDURES from 1995 to 2020-12-21 Procedure Date Ordered Result Body Site Imm: Boostrix 0.5mL IM TDAP 2020-12-12 N/A RESULTS Component Value Reference Range GROUP B STREP CULTURE Reviewed date:12/17/2020 08:52:34 Interpretation: Performing Lab:[facility], [facility] [address] [address] , ,[place] [address] REASON FOR VISIT 4WK PN MEDICAL (GENERAL) HISTORY Type Description Date Medical History asthma Hospitalization History childbirth Hospitalization History angioedema as a child Goals Section No Information Health Concerns No Information MEDICAL EQUIPMENT No Information MENTAL STATUS No Information FUNCTIONAL STATUS No Information ASSESSMENTS Encounter Date Diagnosis Assessment Notes Treatment Notes Treatm ent Clinical Notes Nov, 36 weeks gestation of (ICD-10 - Z3A.36 ) Nov, Encounter for supervision of normal in multigravida in third trimester (ICD-10 - Z34.83) Nov, Encounter for immunization (ICD-10 - Z23) PLAN OF TREATMENT Next Appt Details 1 Week Reason: Provider Name:Issac Mireles, 2020-12-26 10:15:00 AM, [address] [place] [address] , [place], [address], Provider Name:Lexie Garrido, 2020-12-15 0 10:20:00 AM, [address] [place] [address] , [place], [address], Provider Name:Lexie Garrido, 2020-12-15 7 10:20:00 AM, [address] [place] [address] , [place], [address], Follow Up:1 WeekPrenatal Insurance Providers Payer Name Payer Address Payer Phone Insured Name Patient Relati onship to Insured Coverage Start Date Coverage End Date [address] [phone] [place]RISTINE POLLACK self
--- OUTSIDE RECORDS SUMMARY | 2021-01-11 08:54 | CCD ---
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 Name Role Phone Hema Lexie Unavailable PROBLEMS Type Condition ICD9-CM Code [id number] Code Onset Dates Condition S tatus W/U Status Risk SNOMED Code Notes Problem Supervision of other normal Z34.80 Ac tive confirm [id number] Problem Elevated blood pressure affe cting in third trimester, antepartum O16.3 Active confirmed [id number] ALLERGIES Allergen (clinical drug ingredient) Drug/Non Drug Allergy do cumented on EMR Reaction Allergy Type Onset Date Status cephalexin Keflex([facility] Code:[address]-30) hives, swelling Drug Allerg y Active penicillin G Penicillin G Potassium([facility] Code:94935-12 36-94) hives, throat closes Drug Allergy Active ENCOUNTERS from 1995 to 2021-01-09 Encounter Location Date Provider Diagnosis [facility] [address] [place] [address] [place] [address] Dec, Lexie Garrido Elevated blood press ure affecting in third trimester, antepartum O16.3 and 39 weeks gestation of Z3A.39 IMMUNIZATIONS Vaccine Route Administration Date Status TDAP [...] FOR REFERRAL No Information VITAL SIGNS Weight 150 lbs Dec, Weight-kg 68.04 kg Dec, Height 65 in Dec, BMI 24.961 kg/m2 Dec, Blood pressure systolic 130 mm Hg Dec, Blood pressure diastolic 94 mm Hg Dec, MEDICATIONS Medication SIG (Take, Route, Frequency, Duration) Notes Start Da te End Date Status Ventolin HFA Active Active PROCEDURES No Information RESULTS Component Value Reference Range CBC - Complete Blood Count Reviewed date:01/02/2021 14:47:58 Interpretation: Performing Lab:[facility] [address] [facility] [address] , ,[place] [address] WHITE BLOOD COUNT 11.5 4.0-10.0 RED BLOOD COUNT 4.18 4.00-5.40 HEMOGLOBIN 9.8 12.0-15.5 HEMATOCRIT 32.3 36.0-47.0 MEAN CORPUSCULAR VOLUME 77.3 80.0-96.0 MEAN CORPUSCULAR HEMOGLOBIN 23.4 27.0-33.0 MEAN CORPUSCULAR HGB CONC 30.3 32.0-36.5 RED CELL DISTRIBUTION WIDTH 16.0 11.5-14.5 PLATELET COUNT, AUTOMATED 322 150-450 Comprehensive Metabolic Profile (CMP) Reviewed date:01/02/2021 14:48:08 Interpretation: Performing Lab:[facility] [address] [facility] [address] , ,[place] [address] GLUCOSE, FASTING 108 70-100 BLOOD UREA NITROGEN 8 7-18 CREATININE FOR GFR 0.75 0.55-1.30 GLOMERULAR FILTRATION RATE > 60.0 >60 SODIUM LEVEL 139 136-145 POTASSIUM SERUM 3.7 3.5-5.1 CHLORIDE LEVEL 108 98-107 CARBON DIOXIDE LEVEL 22 21-32 CALCIUM LEVEL 8.5 8.5-10.1 AST/SGOT 9 7-37 ALT/SGPT 11 12-78 ALKALINE PHOSPHATASE 96 45-117 BILIRUBIN,TOTAL 0.3 0.2-1.0 TOTAL PROTEIN 6.4 6.4-8.2 ALBUMIN 2.7 3.2-5.2 ALBUMIN/GLOBULIN RATIO 0.7 1.2-2.2 CREATININE,RANDOM URINE Reviewed date:01/02/2021 14:48:17 Interpretation: Performing Lab:[facility] [address] [facility] [address] , ,[place] [address] CREATININE,RANDOM URINE 198.0 TOTAL PROTEIN,RANDOM URINE Reviewed date:01/02/2021 14:48:29 Interpretation: Performing Lab:[facility], [facility] [address] [facility] [address] , ,[place] [address] TOTAL PROTEIN,RANDOM URINE 42.6 0.0-12.0 REASON FOR VISIT 1 WK PN MEDICAL (GENERAL) HISTORY Type Description Date Medical History asthma Hospitalization History childbirth Hospitalization History angioedema as a child Goals Section No Information Health Concerns No Information MEDICAL EQUIPMENT No Information MENTAL STATUS No Information FUNCTIONAL STATUS No Information ASSESSMENTS Encounter Date Diagnosis Assessment Notes Treatment Notes Treatm ent Clinical Notes Dec, Elevated blood pressure affe cting in third trimester, antepartum (ICD-10 - O16.3) Dec, 39 weeks gestation of (ICD-10 - Z3A.39 ) PLAN OF TREATMENT Next Appt Details 1 Week Reason: Follow Up:1 WeekPrenatal Insurance Providers Payer Name Payer Address Payer Phone Insured Name Patient Relati onship to Insured Coverage Start Date Coverage End Date [address] [phone] [employer]RISTINE POLLACK self
--- OUTSIDE RECORDS SUMMARY | 2021-01-11 08:54 | CCD ---
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 Name Role Phone Chi Issac Unavailable PROBLEMS Type Condition ICD9-CM Code [id number] Code Onset Dates Condition S tatus W/U Status Risk SNOMED Code Notes Problem Supervision of other normal Z34.80 Ac tive confirm [id number] Problem Elevated blood pressure affe cting in third trimester, antepartum O16.3 Active confirmed [id number] ALLERGIES Allergen (clinical drug ingredient) Drug/Non Drug Allergy do cumented on EMR Reaction Allergy Type Onset Date Status cephalexin Keflex([facility] Code:[address]-24) hives, swelling Drug Allerg y Active penicillin G Penicillin G Potassium([facility] Code:18538-11 36-94) hives, throat closes Drug Allergy Active ENCOUNTERS from 1995 to 2021-01-07 Encounter Location Date Provider Diagnosis [facility] [address] [place] [address] [place] [address] Dec, 2020 Issac Mireles Encounter for superv ision of normal in multigravida in third trimester Z34.83 and 38 weeks gestation of Z3A.38 IMMUNIZATIONS Vaccine Route Administration Date Status TDAP [...] FOR REFERRAL No Information VITAL SIGNS Weight 148.6 lbs Dec, Weight-kg 67.4 kg Dec, Height 65 in Dec, BMI 24.728 kg/m2 Dec, Blood pressure systolic 120 mm Hg Dec, Blood pressure diastolic 78 mm Hg Dec, MEDICATIONS Medication SIG (Take, Route, Frequency, Duration) Notes Start Da te End Date Status Ventolin HFA Active Active PROCEDURES No Information RESULTS No Results [...] Treatment Notes Treatm ent Clinical Notes Dec, Encounter for supervision of normal in multigravida in third trimester (ICD-10 - Z34.83) Dec, 38 weeks gestation of (ICD-10 - Z3A.38 ) PLAN OF TREATMENT No Information Insurance Providers Payer Name Payer Address Payer Phone Insured Name Patient Relati onship to Insured Coverage Start Date Coverage End Date [address] [phone] CHRISTINE POLLACK self
[2021-01-11 09:47] LABS: BASO % 0.3 % (0.0-1.0); EOS # 0.2 10^3/uL (0.0-0.5); EOS % 1.5 % (0.0-3.0); HEMATOCRIT 35.2 % (36.0-47.0); HEMOGLOBIN 10.7 g/dl (12.0-15.5); MEAN CORPUSCULAR HEMOGLOBIN 23.2 pg (27.0-33.0); MEAN CORPUSCULAR HGB CONC 30.4 g/dl (32.0-36.5); MEAN CORPUSCULAR VOLUME 76.4 fl (80.0-96.0); MONO # 1.7 10^3/uL (0.0-0.8); MONO % 14.7 % (2.0-8.0); NEUTROPHILS # 7.7 10^3/uL (1.5-8.5); NEUTROPHILS % 65.9 % (36.0-66.0); PLATELET COUNT, AUTOMATED 359 10^3/uL (150-450); RED BLOOD COUNT 4.61 10^6/uL (4.00-5.40); WHITE BLOOD COUNT 11.6 10^3/uL (4.0-10.0)
[2021-01-11 10:16] LABS: ALT/SGPT 38 U/L (12-78); BILIRUBIN,DIRECT < 0.1 MG/DL (0.0-0.2); BILIRUBIN,TOTAL 0.3 MG/DL (0.2-1.0); LIPASE 110 U/L (73-393); TOTAL PROTEIN 7.1 GM/DL (6.4-8.2)
[2021-01-11 12:45] VITALS: BP 139/90
== END 2021-01-11 12:44 | disposition home or self-care (01) ==
LOC: M ED 03:05
DX: R20.9 Unspecified disturbances of skin sensation (principal)